=== PATIENT | male | born 2000 | race African-American/Black ===

== ENCOUNTER 2023-02-23 19:47 | Emergency (ER) | payer OTHER ==
[~2023-02-23] VITALS: Ht 175.3 cm; Wt 101.6 kg
[2023-02-23] MEDS ORDERED: methocarbamoL 500 MG TAB PO ONE (21:25)
[2023-02-23] MEDS ORDERED: KETOROLAC 60MG 2ML VIAL IM ONE (21:25)
[2023-02-23 23:30] VITALS: BP 145/75; TEMP 98.8; O2SAT 99
[2023-02-23] MEDS ORDERED: IBUP-1022 PO ×2 (23:33→23:45)
[2023-02-23] MEDS ORDERED: METH-1164 PO ×2 (23:33→23:45)
== END 2023-02-23 23:45 | disposition home or self-care (01) ==
LOC: M ED 19:47
DX: S13.4XXA Sprain of ligaments of cervical spine, initial encounter (principal); S23.3XXA Sprain of ligaments of thoracic spine, initial encounter; V49.59XA Passenger injured in collision with other motor vehicles in traffic accident, initial encounter; Z91.011 Allergy to milk products; Z79.899 Other long term (current) drug therapy
CPT/HCPCS: 72052; 72072; 96372; 99283; J1885